=== PATIENT | female | born 1960 | race Caucasian/White ===

== ENCOUNTER 2017-11-15 21:43 | Inpatient (IN) | payer OTHER ==
[~2017-11-15] VITALS: Ht 170.2 cm; Wt 86.0 kg
[~2017-11-15 21:43] MED LIST: ARMOUR THYROID15 MG PO; Bactrim,Septra DS 80 PO; DAILY MULTIPLE1 EACH PO; ESTROGEL50 GM TD; FEOSOL325 MG PO; ICAPS TABLET1 EACH PO; PARAFON FORTE500 MG PO; PROGESTERONE100 MG PO; Percocet 7.5/325,End PO; THERAGRAN1 TABLET PO; ULTRAM50 MG PO; VITAMIN C500 M1 PO; VITAMIN D2000 UNIT PO; [UNRECOGNIZED DRUG - OTHER] PO
[2017-11-16 09:38] VITALS: BP 180/73
[2017-11-16 19:21] LABS: HEMATOCRIT 38.6 % (36.0-46.0); HEMOGLOBIN 12.7 G/DL (11.9-15.5); MCH 29.3 PG (29.0-34.0); MCHC 32.9 G/DL (30.0-36.0); MCV 88.9 FL (83-99); PLATELET COUNT 234 K/uL (156-360); RBC DIS.WIDTH-CV 12.9 % (11.8-14.6); RBC DIS.WIDTH-SD 42.3 % (39-53); RED BLOOD COUNT 4.34 M/uL (3.80-5.20); WHITE BLOOD COUNT 12.5 K/uL (4.1-10.2)
[2017-11-16 19:25] VITALS: BP 163/78
[2017-11-16 19:34] LABS: CHLORIDE 106 mEq/L (99-109); POTASSIUM 4.1 mEq/L (3.7-5.4); SODIUM 138 mEq/L (136-147)
[2017-11-16 19:36] LABS: GLUCOSE 194 mg/dL (70-99)
[2017-11-16 19:40] LABS: CREATININE 0.7 mg/dL (0.6-1.3); GFR ESTIMATE (CALCULATED) > 59 mL/min/
[2017-11-16 19:41] LABS: UREA NITROGEN (BUN) 10 mg/dL (9-23)
[2017-11-17 00:06] VITALS: BP 158/78
[2017-11-17 03:39] VITALS: BP 155/74
[2017-11-17 06:02] LABS: HEMATOCRIT 36.7 % (36.0-46.0); HEMOGLOBIN 12.1 G/DL (11.9-15.5); MCH 29.2 PG (29.0-34.0); MCV 88.6 FL (83-99); PLATELET COUNT 291 K/uL (156-360); RBC DIS.WIDTH-CV 12.8 % (11.8-14.6); RBC DIS.WIDTH-SD 41.8 % (39-53); RED BLOOD COUNT 4.14 M/uL (3.80-5.20); WHITE BLOOD COUNT 11.9 K/uL (4.1-10.2)
[2017-11-17 06:37] LABS: CHLORIDE 99 MEQ/L (99-109); CREATININE 0.6 MG/DL (0.6-1.3); GFR ESTIMATE (CALCULATED) > 59 mL/min/; GLUCOSE 146 mg/dL (70-99); POTASSIUM 4.5 MEQ/L (3.7-5.4); SODIUM 134 MEQ/L (136-147); UREA NITROGEN (BUN) 6 mg/dL (9-23)
[2017-11-17 08:16] VITALS: BP 184/84
[2017-11-17 11:53] VITALS: BP 189/80
[2017-11-17 16:04] VITALS: BP 157/76
[2017-11-17 19:33] VITALS: BP 147/80
[2017-11-18 00:19] VITALS: BP 158/77
[2017-11-18 03:32] VITALS: BP 135/78
[2017-11-18 06:02] LABS: HEMATOCRIT 36.3 % (36.0-46.0); HEMOGLOBIN 12.1 G/DL (11.9-15.5); MCH 29.4 PG (29.0-34.0); MCHC 33.3 G/DL (30.0-36.0); MCV 88.1 FL (83-99); PLATELET COUNT 238 K/uL (156-360); RBC DIS.WIDTH-CV 12.7 % (11.8-14.6); RBC DIS.WIDTH-SD 41.5 % (39-53); RED BLOOD COUNT 4.12 M/uL (3.80-5.20)
[2017-11-18 06:56] LABS: CHLORIDE 101 MEQ/L (99-109); CREATININE 0.7 MG/DL (0.6-1.3); GFR ESTIMATE (CALCULATED) > 59 mL/min/; GLUCOSE 102 mg/dL (70-99); UREA NITROGEN (BUN) 8 mg/dL (9-23)
[2017-11-18 06:57] LABS: SODIUM 141 MEQ/L (136-147)
[2017-11-18 08:23] VITALS: BP 123/73
== END 2017-11-18 10:10 | disposition home or self-care (01) | DRG 743 ==
LOC: ENRESERV 21:43 → 2SOUTH 11-16 08:58 → 2EASTP 11-16 08:58 → 2SOUTH 11-16 09:55 → ENRESERV 11-16 14:06 → 2SOUTH 11-16 16:10 → 2EASTP 11-16 16:22
PROVIDERS: Obstetrics & Gynecology Gynecologic Oncology
PROC: 0UT70ZZ Resection of Bilateral Fallopian Tubes, Open Approach (ICD-10-PCS; principal; 2017-11-16)
PROC: 0UT90ZZ Resection of Uterus, Open Approach (ICD-10-PCS; principal; 2017-11-16)
PROC: 0UTC0ZZ Resection of Cervix, Open Approach (ICD-10-PCS; principal; 2017-11-16)
PROC: 0UT20ZZ Resection of Bilateral Ovaries, Open Approach (ICD-10-PCS; principal; 2017-11-16)
DX: D25.9 Leiomyoma of uterus, unspecified (principal); N85.00 Endometrial hyperplasia, unspecified; N95.0 Postmenopausal bleeding; J45.30 Mild persistent asthma, uncomplicated; E03.9 Hypothyroidism, unspecified; M19.90 Unspecified osteoarthritis, unspecified site; K21.9 Gastro-esophageal reflux disease without esophagitis; Z87.01 Personal history of pneumonia (recurrent); Z87.891 Personal history of nicotine dependence
CPT/HCPCS: 36415; 80048; 85027; 86850; 86900; 86901; 86920; 88307; J0690; J1100; J1170; J1650; J1885; J2250; J2405; J2710; J2765; J3010; J7643; Q0175